=== PATIENT | female | born 1965 | race Two or more races ===

== ENCOUNTER → 2023-12-03 | Outpatient (CLI) | payer OTHER ==
--- NOTE | 2023-12-03 14:13 | XR ---
EXAMINATION TYPE: XR lumbosacral spine min 4V DATE OF EXAM: 12/03/2023 1:18 PM CLINICAL INDICATION: Female, 58 years old with history of [id number] RADICULOPATHY; [facility] COMPARISON: None TECHNIQUE: XR lumbosacral spine min 4V - Frontal, lateral , bilateral oblique and coned in L5-S1 late ral views of the spine. FINDINGS: No evidence of any acute osseous pathology. No evidence of loss of vertebral body height i s seen. There is straightened alignment of the lumbar vertebral bodies. Mild scattered disc space ioana rowing worse at L5-S1 with endplate sclerosis. Multilevel marginal osteophyte formation throughout th e visualized spine. There is facet joint arthropathy throughout the spine. Scattered at least mild ne ural foraminal stenosis. Atherosclerosis of the arterial vasculature. IMPRESSION: 1. No acute fracture. 2. Moderate multilevel disc degeneration. [facility], , 12/03/2023 2:10 PM
== END | disposition home or self-care (01) ==
LOC: RADXRYALE 13:04
PROVIDERS: ATTEND Internal Medicine
DX: M54.16 Radiculopathy, lumbar region
CPT/HCPCS: 72110

== ENCOUNTER → 2024-02-21 | Outpatient (CLI) | payer OTHER ==
--- NOTE | 2024-02-21 16:29 | XR ---
EXAMINATION TYPE: XR chest 2V DATE OF EXAM: 02/21/2024 4:16 PM COMPARISON: None CLINICAL INDICATION: Female, 58 years old with history of [id number] COPD; TECHNIQUE: XR chest 2V Frontal and lateral views of the chest. FINDINGS: Lungs/Pleura: There is flattening of the diaphragm with increased lucency of the lungs. No evidence o f pneumothorax, pleural effusion or focal consolidation. Pulmonary vascularity: Unremarkable. Heart/mediastinum: Cardiomediastinal silhouette is unremarkable. Musculoskeletal: No acute osseous pathology. IMPRESSION: 1. No acute cardiopulmonary disease process. 2. COPD changes. [facility], Workstation: [facility], 02/21/2024 4:27 PM
== END | disposition home or self-care (01) ==
LOC: RADXRYALE 16:07
PROVIDERS: ATTEND Internal Medicine
DX: J44.9 Chronic obstructive pulmonary disease, unspecified (principal)
CPT/HCPCS: 71046